=== PATIENT | male | born 1985 | race Two or more races ===

== ENCOUNTER 2022-05-28 15:35 | Emergency (ER) | payer BC ==
[~2022-05-28] VITALS: Ht 180.3 cm; Wt 95.3 kg
[2022-05-28] MEDS ORDERED: ULORIC40 MG PO (15:45)
== END 2022-05-28 18:04 | disposition home or self-care (01) ==
LOC: ER 15:35
DX: M10.9 Gout, unspecified (principal); Z91.013 Allergy to seafood